=== PATIENT | male | born 1960 | race American Indian/Alaskan Native ===

== ENCOUNTER 2017-01-31 10:00 | Day surgery (SDC) | payer MEDICAID ==
[2017-01-31] MEDS ORDERED: DILAUDID IV PRN (11:19)
[2017-01-31] MEDS ORDERED: ZOFRAN IV PRN (11:19)
[2017-01-31] MEDS ORDERED: PERCOCET 5/325 PO PRN (11:19)
--- NOTE | 2017-01-31 11:34 | Anesthesia Consultation ---
Anesthesia Consult and Med Hx Date of service: 01/31/17 - Airway Anesthetic Teeth Evaluation: Good ROM Head & Neck: Adequate Mental/Hyoid Distance: Adequate Mallampati Class: Class II Intubation Access Assessment: Probably Good - Pulmonary Exam CTA: Yes - Cardiac Exam Cardiac Exam: RRR - Pre-Operative Health Status ASA Pre-Surgery Classification: ASA3 Proposed Anesthetic Plan: General - Pulmonary Hx Smoking: Yes (former, quit 10 yrs ago) Hx Asthma: No Hx Sleep Apnea: Yes (does not use CPAP) - Cardiovascular System Hx Hypertension: Yes Hx Heart Murmur: Yes - Central Nervous System Hx Seizures: No CVA: No - Endocrine Hx Renal Disease: No Hx Liver Disease: No Hx Thyroid Disease: Yes Hx Hypothyroidism: Yes - Other Systems Hx Obesity: Yes
--- NOTE | 2017-01-31 11:35 | Anesthesia Day of Surgery ---
Anesthesia Day of Surgery - Day of Surgery Patient Examined: Yes Patient H&P Reviewed: Yes Patient is NPO: Yes
[2017-01-31] MEDS ORDERED: PEPCID IV NR (12:00)
[2017-01-31] MEDS ORDERED: NACL 0.9% 1000 ML 1,000 ML IV SCH (12:00)
[2017-01-31] MEDS ORDERED: VERSED IV NR (12:00)
[2017-01-31] MEDS ORDERED: DIPRIVAN 10 MG/ML IV ONE ×2 (12:08→12:30)
[2017-01-31] MEDS ORDERED: XYLOCAINE MPF 2% ONE (12:09)
[2017-01-31] MEDS ORDERED: DILAUDID ONE (12:09)
[2017-01-31] MEDS ORDERED: TRIPLE ANTIBIOTIC TP ONE ×2 (12:38→12:46)
[2017-01-31] MEDS ORDERED: NACL 0.9% IR ONE (12:38)
[2017-01-31] MEDS ORDERED: MARCAINE 0.25% INFILTRATI ONE ×2 (12:38→12:40)
[2017-01-31] MEDS ORDERED: SUBLIMAZE ONE (12:47)
[2017-01-31] MEDS ORDERED: ZOFRAN ONE (13:31)
[2017-01-31] MEDS ORDERED: NORCO 5/325 PO PRN (14:08)
[2017-01-31] MEDS ORDERED: NORCO 5/325 ONE (14:09)
--- NOTE | 2017-01-31 14:28 | Post Operative Note ---
Date of procedure: 01/31/17 Pre-op diagnosis: balanitis Post-op diagnosis: same Findings: healed ulcer Procedure: circ Anesthesia: GETA Surgeon: MARILEE MATIAS Estimated blood loss: minimal Pathology: list (skin) Specimen disposition: to lab Condition: stable Disposition: PACU
--- NOTE | 2017-01-31 14:30 | Discharge Summary ---
Short Stay Discharge Plan Activity: other (no straining ) Weight Bearing Status: Full Weight Bearing Diet: low fat, low cholesterol, low salt Wound: open to air, other (remove dressing tonight ) Durable Medical Equipment Needed Upon Discharge: other Follow up with: PRIMARY CARE, [Primary Care Provider] - 7 Days MARILEE MATIAS MD [Staff Physician] - 14 Days
--- NOTE | 2017-01-31 14:58 | Post Anesthesia Evaluation ---
- Post Anesthesia Evaluation Patient Participated: Yes Airway Patent: Yes Stable Respiratory Function: Yes Nausea/Vomiting: No Temp > 96.8F: Yes Pain Manageable: Yes Adequeate Hydration: Yes Anesthesia Complications: No Block Receding Appropriately: Not Applicable Patient on Ventilator: No
[2017-01-31] MEDS ORDERED: REGLAN IV ONE (17:00)
--- NOTE | 2017-01-31 18:13 | Operative Report ---
PREOPERATIVE DIAGNOSES: Penile ulcer, recurrent balanitis, mild phimosis. POSTOPERATIVE DIAGNOSES: Penile ulcer, recurrent balanitis, mild phimosis. PROCEDURE PERFORMED: Circumcision sleeve technique. SURGEON: Tung Martinez MD ANESTHESIA: General. FINDINGS: This is a gentleman with a penile ulcer. His RPR test was negative. The antibiotics did take care of the ulcer. He now presents for circumcision. DESCRIPTION OF PROCEDURE: The patient brought to the operating room and placed on the operating table. Following induction of anesthesia, placed in supine position, prepped and draped in usual sterile fashion. Two penile circumferential incisions were marked out with a marking pencil. Incisions were made and the area was connected dorsally. The large amount of excess skin was excised. Hemostasis was assured with 3-0 Vicryl ties or cautery. Sutures were placed at 12, 3, 6, and 9 o'clock position. Each quadrant was sutured with 3-0 chromic. The patient tolerated the procedure well and brought to recovery room with a loose dressing to be removed tonight. He was brought to recovery room in stable condition. Minimal blood loss. JOB# [id number] BARRERA/SONIDO
[2017-01-31 18:52] VITALS: BP 135/80
== END 2017-01-31 17:15 | disposition home or self-care (01) ==
LOC: OR 10:00
PROVIDERS: ATTEND Urology
DX: N47.1 Phimosis (principal); N48.1 Balanitis; N48.5 Ulcer of penis; I10 Essential (primary) hypertension; E03.9 Hypothyroidism, unspecified; E66.9 Obesity, unspecified; Z68.36 Body mass index [BMI] 36.0-36.9, adult; Z79.82 Long term (current) use of aspirin; Z79.899 Other long term (current) drug therapy; Z87.891 Personal history of nicotine dependence
CPT/HCPCS: 36415; 54161; 84132; 88304; J1170; J2250; J2405; J2704; J2765; J3010; J7030; A6250